=== PATIENT | female | born 1945 | race Caucasian/White ===

== ENCOUNTER 2017-02-16 18:18 | Inpatient (IN) | payer MEDICARE, BC ==
[~2017-02-16] VITALS: Ht 157.5 cm; Wt 61.7 kg
--- NOTE | 2017-02-16 18:20 | Emergency Room Report ---
History of Present Illness General Source: Patient, EMS Present Illness HPI Patient is a 71-year-old female who presented after having a syncopal episode. Patient had been noted to have hematemesis with some bright red blood. Patient reports having some epigastric pain. Patient recently taking Aleve for a pain. Patient recently been treated for conjunctivitis as well as for upper respiratory infection with azithromycin. Patient denied any prior history of GI bleed. Patient states that she had last had a syncopal episode approximately 40 years ago. She reports having some dizziness. The patient stated that she had not been any diarrhea. She denies any bloody stools. Allergies: Coded Allergies: PENICILLINS (Unverified Allergy, Unknown, 02/16/17) Patient History Past Medical History: see triage record Reviewed Nursing Documentation: PMH: Agreed, PSxH: Agreed Review of Systems All Other Systems: negative except mentioned in HPI Physical Exam Sp02 EP Interpretation: reviewed, normal General Appearance: normal inspection, well appearing, alert, GCS 15, mild distress Head: atraumatic ENT: normal ENT inspection, hearing grossly normal, normal voice Neck: normal inspection, full range of motion, supple, no bony tend Respiratory: normal inspection, lungs clear, normal breath sounds, no respiratory distress, no retraction, no wheezing Cardiovascular #1: regular rate, rhythm, no edema Gastrointestinal: normal inspection, normal bowel sounds, soft, no guarding, no hernia, tenderness Genitourinary: no CVA tenderness Musculoskeletal: normal inspection, back normal, normal range of motion Neurologic: normal inspection, alert, oriented x3, responsive, linen room attendant III-XII nml as tested, speech normal Psychiatric: normal inspection, judgement/insight normal, mood/affect normal Skin: normal inspection, normal color, no rash Medical Decision Making Diagnostic Impression: Primary Impression: Syncope Additional Impression: Upper gastrointestinal bleeding ER Course Patient presented for abdominal pain. Differential diagnoses included ischemic bowel, appendicitis, perforated viscus, abdominal aortic aneurysm, inferior myocardial infarction, viral gastroenteritis Because of complexity of patient's case laboratory testing and imaging studies were ordered. EKG interpreted by me showed normal sinus rhythm with a rate of [address] or T wave changes. 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 The patient was pain-free after treatment with IV acid blockers and IV fluids. Dr. Albarado was contacted for inpatient management due to need for inpatient monitoring and treatment. Dr. Dang was contacted by Dr. Albarado for GI consult Laboratory Tests Test 02/16/17 19:22 02/16/17 20:45 02/17/17 06:05 White Blood Count 11.4 K/UL (4.8-10.8) H Pending Red Blood Count 3.53 M/UL (4.20-5.40) L Pending Hemoglobin 11.0 G/DL (12.0-16.0) L Pending Hematocrit 32.7 % (37.0-47.0) L Pending Mean Corpuscular Volume 93 FL (80-99) Pending Mean Corpuscular Hemoglobin 31.2 PG (27.0-31.0) H Pending Mean Corpuscular Hemoglobin Concent 33.7 G/DL (32.0-36.0) Pending Red Cell Distribution Width 12.5 % (11.6-14.8) Pending Platelet Count 211 K/UL (150-450) Pending Mean Platelet Volume 5.7 FL (6.5-10.1) L Pending Neutrophils (%) (Auto) 76.4 % (45.0-75.0) H Pending Lymphocytes (%) (Auto) 17.0 % (20.0-45.0) L Pending Monocytes (%) (Auto) 5.3 % (1.0-10.0) Pending Eosinophils (%) (Auto) 0.9 % (0.0-3.0) Pending Basophils (%) (Auto) 0.5 % (0.0-2.0) Pending Prothrombin Time 11.0 SEC (9.30-11.50) Prothrombin Time INR 1.1 (0.9-1.1) PTT 22 SEC (23-33) L Sodium Level 140 mEQ/L (135-145) Pending Potassium Level 3.8 mEQ/L (3.4-4.9) Pending Chloride Level 102 mEQ/L (98-107) Pending Carbon Dioxide Level 25 mEQ/L (20-30) Pending Anion Gap 13 (5-15) Blood Urea Nitrogen 28 mg/dL (7-23) H Pending Creatinine 0.8 mg/dL (0.5-0.9) Pending Estimate Glomerular Filtration Rate > 60 mL/min (>60) Pending Glucose Level 143 mg/dL (74-106) H Pending Calcium Level 8.3 mg/dL (8.6-10.2) L Pending Total Bilirubin 0.2 mg/dL (0.0-1.2) Pending Aspartate Amino Transferase (AST) 16 U/L (5-40) Pending Alanine Aminotransferase (ALT) 11 U/L (3-33) Pending Alkaline Phosphatase 52 U/L (35-104) Pending Troponin I < 0.30 ng/mL (<=0.30) Total Protein 5.7 g/dL (6.6-8.7) L Pending Albumin 3.5 g/dL (3.5-5.2) Pending Globulin 2.2 g/dL Pending Albumin/Globulin Ratio 1.5 (1.0-2.7) Lipase 42 U/L (< 60) Urine Color Pale yellow Urine Appearance Clear Urine pH 6.5 (4.5-8.0) Urine Specific [place] 1.015 (1.005-1.035) Urine Protein Negative (NEGATIVE) Urine Glucose (UA) Negative (NEGATIVE) Urine Ketones 1+ (NEGATIVE) H Urine Occult Blood Negative (NEGATIVE) Urine Nitrite Negative (NEGATIVE) Urine Bilirubin Negative (NEGATIVE) Urine Urobilinogen Normal MG/DL (0.0-1.0) Urine Leukocyte Esterase Negative (NEGATIVE) Iron Level Pending Unsaturated Iron Binding Pending Pro-B-Type Natriuretic Peptide Pending Triglycerides Level Pending Cholesterol Level Pending LDL Cholesterol Pending HDL Cholesterol Pending Cholesterol/HDL Ratio Pending Amylase Level Pending Thyroid Stimulating Hormone (TSH) Pending EKG Diagnostic Results Rate: normal - 80 Rhythm: NSR Rhythm Strip Diag. Results EP Interpretation: yes Rhythm: NSR, no PVC's, no ectopy Chest X-Ray Diagnostic Results EP Interpretation: Yes Findings: no consolidation, no effusion, no pneumothorax, no acute cardiopulmonary disease Number of Views: 1 Status: improved Disposition: ADMITTED INPATIENT Condition: Ector Grion Feb 16, 2017 18:20
[2017-02-16] MEDS ORDERED: Pantoprazole Inj IV ONE (18:30)
[2017-02-16] MEDS ORDERED: Famotidine 20 MG/ 2ML VIAL IVP ONE (18:30)
[2017-02-16] MEDS ORDERED: TRAZODONE HCL150 MG ORAL (19:26)
[2017-02-16] MEDS ORDERED: Tubing IV Cassette IV ONE (19:26)
[2017-02-16 19:48] VITALS: BP 113/66
[2017-02-16 19:48] LABS: BASOPHILS % (AUTO) 0.5 % (0.0-2.0); EOSINOPHILS % (AUTO) 0.9 % (0.0-3.0); MEAN CORPUSCULAR HEMOGLOBIN 31.2 PG (27.0-31.0); MEAN CORPUSCULAR HGB CONC 33.7 G/DL (32.0-36.0); MEAN CORPUSCULAR VOLUME 93 FL (80-99); MEAN PLATELET VOLUME 5.7 FL (6.5-10.1); MONOCYTES % (AUTO) 5.3 % (1.0-10.0); NEUTROPHILS % (AUTO) 76.4 % (45.0-75.0); PLATELET COUNT 211 K/UL (150-450); RED BLOOD COUNT 3.53 M/UL (4.20-5.40); RED CELL DISTRIBUTION WIDTH 12.5 % (11.6-14.8); WHITE BLOOD COUNT 11.4 K/UL (4.8-10.8)
[2017-02-16 19:53] LABS: INR 1.1 (0.9-1.1)
[2017-02-16 19:56] LABS: ALANINE AMINOTRANSFERASE 11 U/L (3-33); ALBUMIN/GLOBULIN RATIO 1.5 (1.0-2.7); ANION GAP 13 (5-15); ASPARTATE AMINO TRANSFERASE 16 U/L (5-40); CALCIUM 8.3 mg/dL (8.6-10.2); CARBON DIOXIDE 25 mEQ/L (20-30); CHLORIDE 102 mEQ/L (98-107); CREATININE 0.8 mg/dL (0.5-0.9); GLOMERULAR FILTRATION RATE > 60 mL/min (>60); HEMOLYSIS 6; LIPASE 42 U/L (< 60); POTASSIUM 3.8 mEQ/L (3.4-4.9); SODIUM 140 mEQ/L (135-145); TOTAL PROTEIN 5.7 g/dL (6.6-8.7); TROPONIN I < 0.30 ng/mL (<=0.30)
[2017-02-16 21:01] VITALS: BP 109/65
[2017-02-16 21:22] LABS: KETONES,URINE 1+ (NEGATIVE); LEUKOCYTE ESTERASE ,URINE NEGATIVE (NEGATIVE); NITRITE,URINE NEGATIVE (NEGATIVE); PH,URINE 6.5 (4.5-8.0); PROTEIN,URINE NEGATIVE (NEGATIVE); UROBILINOGEN,URINE NORMAL MG/DL (0.0-1.0)
[2017-02-16 21:23] LABS: APPEARANCE,URINE CLEAR
[2017-02-16] MEDS ORDERED: D5NS 1,000 ML IV SCH (22:15)
[2017-02-17 07:19] LABS: BASOPHILS % (AUTO) 0.5 % (0.0-2.0); EOSINOPHILS % (AUTO) 0.9 % (0.0-3.0); LYMPHOCYTES % (AUTO) 22.7 % (20.0-45.0); MEAN CORPUSCULAR HEMOGLOBIN 30.2 PG (27.0-31.0); MEAN CORPUSCULAR HGB CONC 32.9 G/DL (32.0-36.0); MEAN CORPUSCULAR VOLUME 92 FL (80-99); MEAN PLATELET VOLUME 6.5 FL (6.5-10.1); MONOCYTES % (AUTO) 7.1 % (1.0-10.0); NEUTROPHILS % (AUTO) 68.8 % (45.0-75.0); PLATELET COUNT 219 K/UL (150-450); RED BLOOD COUNT 3.05 M/UL (4.20-5.40); RED CELL DISTRIBUTION WIDTH 12.8 % (11.6-14.8); WHITE BLOOD COUNT 8.2 K/UL (4.8-10.8)
[2017-02-17 07:41] LABS: ALANINE AMINOTRANSFERASE 10 U/L (3-33); ALBUMIN/GLOBULIN RATIO 1.5 (1.0-2.7); AMYLASE 39 U/L (10-110); ANION GAP 13 (5-15); ASPARTATE AMINO TRANSFERASE 13 U/L (5-40); CALCIUM 7.8 mg/dL (8.6-10.2); CARBON DIOXIDE 23 mEQ/L (20-30); CHLORIDE 105 mEQ/L (98-107); CHOLESTEROL 120 mg/dL (< 200); CHOLESTEROL/HDL RATIO 3.1 (3.3-4.4); CREATININE 0.6 mg/dL (0.5-0.9); GLOMERULAR FILTRATION RATE > 60 mL/min (>60); LDL CHOLESTEROL (CALC.) 57 mg/dL (60-99); POTASSIUM 4.1 mEQ/L (3.4-4.9); SODIUM 141 mEQ/L (135-145); TOTAL PROTEIN 5.1 g/dL (6.6-8.7)
[2017-02-17 07:42] LABS: THYROID STIMULATING HORMONE 0.827 uIU/mL (0.300-4.500)
[2017-02-17 07:46] LABS: HEMOLYSIS 7; IRON 234 ug/dL (37-145); TOTAL IRON BINDING CAPACITY 250 ug/dL (250-400)
[2017-02-17 10:20] VITALS: BP 109/66
[2017-02-17] MEDS ORDERED: D5NS 1000ml IV ONE (10:51)
[2017-02-17] MEDS ORDERED: D5NS 1,000 ML IV SCH ×2 (11:00→11:30)
[2017-02-17 12:00] VITALS: BP 113/64
--- NOTE | 2017-02-17 12:03 | General Progress Note ---
Assessment/Plan Assessment/Plan GI Consult Full note dictated PPI, NPO EGD in am Thank you Ariana Sandoval Subjective Allergies: Coded Allergies: PENICILLINS (Unverified Allergy, Unknown, 02/16/17) Objective Last 24 Hour Vital Signs Date Time Temp Pulse Resp B/P Pulse Ox O2 Delivery O2 Flow Rate FiO2 02/17/17 10:20 97.7 79 20 109/66 96 Room Air 02/17/17 08:43 75 02/17/17 04:00 77 02/17/17 00:00 84 02/16/17 21:26 97.7 82 15 109/65 99 Room Air 02/16/17 21:01 82 15 109/65 99 Room Air 02/16/17 19:48 79 23 113/66 98 Room Air 02/16/17 18:11 97.7 81 16 118/61 98 Room Air Intake and Output 02/16/17 02/17/17 19:00 07:00 Intake Total 1666 ml Balance 1666 ml Intake Oral 50 ml IV Total 1616 ml # Voids 3 Laboratory Tests 02/16/17 19:22: White Blood Count 11.4H, Red Blood Count 3.53L, Hemoglobin 11.0L, Hematocrit 32.7L, Mean Corpuscular Volume 93, Mean Corpuscular Hemoglobin 31.2H, Mean Corpuscular Hemoglobin Concent 33.7, Red Cell Distribution Width 12.5, Platelet Count 211, Mean Platelet Volume 5.7L, Neutrophils (%) (Auto) 76.4H, Lymphocytes (%) (Auto) 17.0L, Monocytes (%) (Auto) 5.3, Eosinophils (%) (Auto) 0.9, Basophils (%) (Auto) 0.5, Prothrombin Time 11.0, Prothromb Time International Ratio 1.1, Activated Partial Thromboplast Time 22L, Sodium Level 140, Potassium Level 3.8, Chloride Level 102, Carbon Dioxide Level 25, Anion Gap 13, Blood Urea Nitrogen 28H, Creatinine 0.8, Estimat Glomerular Filtration Rate > 60, Glucose Level 143H, Calcium Level 8.3L, Total Bilirubin 0.2, Aspartate Amino Transf (AST/SGOT) 16, Alanine Aminotransferase (ALT/SGPT) 11, Alkaline Phosphatase 52, Troponin I < 0.30, Total Protein 5.7L, Albumin 3.5, Globulin 2.2 , Albumin/Globulin Ratio 1.5, Lipase 42 02/16/17 20:45: Urine Color Pale yellow, Urine Appearance Clear, Urine pH 6.5, Urine Specific [place] 1.015, Urine Protein Negative, Urine Glucose (UA) Negative, Urine Ketones 1+H, Urine Occult Blood Negative, Urine Nitrite Negative, Urine Bilirubin Negative, Urine Urobilinogen Normal, Urine Leukocyte Esterase Negative 02/17/17 06:05: White Blood Count 8.2, Red Blood Count 3.05L, Hemoglobin 9.2L, Hematocrit 28.0L , Mean Corpuscular Volume 92, Mean Corpuscular Hemoglobin 30.2, Mean Corpuscular Hemoglobin Concent 32.9, Red Cell Distribution Width 12.8, Platelet Count 219, Mean Platelet Volume 6.5, Neutrophils (%) (Auto) 68.8, Lymphocytes (% ) (Auto) 22.7, Monocytes (%) (Auto) 7.1, Eosinophils (%) (Auto) 0.9, Basophils ( %) (Auto) 0.5, Sodium Level 141, Potassium Level 4.1, Chloride Level 105, Carbon Dioxide Level 23, Anion Gap 13, Blood Urea Nitrogen 35H, Creatinine 0.6, Estimat Glomerular Filtration Rate > 60, Glucose Level 106, Calcium Level 7.8L, Total Bilirubin < 0.2, Aspartate Amino Transf (AST/SGOT) 13, Alanine Aminotransferase (ALT/SGPT) 10, Alkaline Phosphatase 42, Total Protein 5.1L, Albumin 3.1L, Globulin 2.0, Albumin/Globulin Ratio 1.5, Iron Level 234H, Total Iron Binding Capacity 250, Percent Iron Saturation 94H, Unsaturated Iron Binding < 16L, Pro-B-Type Natriuretic Peptide 34, Triglycerides Level 121, Cholesterol Level 120, LDL Cholesterol 57L, HDL Cholesterol 39, Cholesterol/HDL Ratio 3.1L, Amylase Level 39, Thyroid Stimulating Hormone (TSH) 0.827 Height (Feet): 5 Height (Inches): 2.00 Weight (Pounds): 135 JIMMIE SANDOVAL Feb 17, 2017 12:03
[2017-02-17] MEDS: Pantoprazole Inj IVP SCH ×2 (12:28→21:29)
[2017-02-17] MEDS: D5 1/2NS 1,000 ML IV SCH ×2 (12:28→21:29)
[2017-02-17 16:13] VITALS: BP 129/77
--- NOTE | 2017-02-17 16:34 | Cardiology Progress Note ---
Assessment/Plan Assessment/Plan The patient is seen and examined, full consult note will be dictated. Objective Last 24 Hour Vital Signs Date Time Temp Pulse Resp B/P Pulse Ox O2 Delivery O2 Flow Rate FiO2 02/17/17 16:27 87 02/17/17 16:13 98.2 78 19 129/77 98 Room Air 02/17/17 12:00 87 02/17/17 12:00 98.1 78 20 113/64 98 Room Air 02/17/17 10:20 97.7 79 20 109/66 96 Room Air 02/17/17 08:43 75 02/17/17 04:00 77 02/17/17 00:00 84 02/16/17 21:26 97.7 82 15 109/65 99 Room Air 02/16/17 21:01 82 15 109/65 99 Room Air 02/16/17 19:48 79 23 113/66 98 Room Air 02/16/17 18:11 97.7 81 16 118/61 98 Room Air Intake and Output 02/16/17 02/17/17 19:00 07:00 Intake Total 1741 ml Balance 1741 ml Intake Oral 50 ml IV Total 1691 ml # Voids 3 Laboratory Tests Test 02/16/17 19:22 02/16/17 20:45 02/17/17 06:05 White Blood Count 11.4 K/UL (4.8-10.8) H 8.2 K/UL (4.8-10.8) Red Blood Count 3.53 M/UL (4.20-5.40) L 3.05 M/UL (4.20-5.40) L Hemoglobin 11.0 G/DL (12.0-16.0) L 9.2 G/DL (12.0-16.0) L Hematocrit 32.7 % (37.0-47.0) L 28.0 % (37.0-47.0) L Mean Corpuscular Volume 93 FL (80-99) 92 FL (80-99) Mean Corpuscular Hemoglobin 31.2 PG (27.0-31.0) H 30.2 PG (27.0-31.0) Mean Corpuscular Hemoglobin Concent 33.7 G/DL (32.0-36.0) 32.9 G/DL (32.0-36.0) Red Cell Distribution Width 12.5 % (11.6-14.8) 12.8 % (11.6-14.8) Platelet Count 211 K/UL (150-450) 219 K/UL (150-450) Mean Platelet Volume 5.7 FL (6.5-10.1) L 6.5 FL (6.5-10.1) Neutrophils (%) (Auto) 76.4 % (45.0-75.0) H 68.8 % (45.0-75.0) Lymphocytes (%) (Auto) 17.0 % (20.0-45.0) L 22.7 % (20.0-45.0) Monocytes (%) (Auto) 5.3 % (1.0-10.0) 7.1 % (1.0-10.0) Eosinophils (%) (Auto) 0.9 % (0.0-3.0) 0.9 % (0.0-3.0) Basophils (%) (Auto) 0.5 % (0.0-2.0) 0.5 % (0.0-2.0) Prothrombin Time 11.0 SEC (9.30-11.50) Prothromb Time International Ratio 1.1 (0.9-1.1) Activated Partial Thromboplast Time 22 SEC (23-33) L Sodium Level 140 mEQ/L (135-145) 141 mEQ/L (135-145) Potassium Level 3.8 mEQ/L (3.4-4.9) 4.1 mEQ/L (3.4-4.9) Chloride Level 102 mEQ/L (98-107) 105 mEQ/L (98-107) Carbon Dioxide Level 25 mEQ/L (20-30) 23 mEQ/L (20-30) Anion Gap 13 (5-15) 13 (5-15) Blood Urea Nitrogen 28 mg/dL (7-23) H 35 mg/dL (7-23) H Creatinine 0.8 mg/dL (0.5-0.9) 0.6 mg/dL (0.5-0.9) Estimat Glomerular Filtration Rate > 60 mL/min (>60) > 60 mL/min (>60) Glucose Level 143 mg/dL (74-106) H 106 mg/dL (74-106) Calcium Level 8.3 mg/dL (8.6-10.2) L 7.8 mg/dL (8.6-10.2) L Total Bilirubin 0.2 mg/dL (0.0-1.2) < 0.2 mg/dL (0.0-1.2) Aspartate Amino Transf (AST/SGOT) 16 U/L (5-40) 13 U/L (5-40) Alanine Aminotransferase (ALT/SGPT) 11 U/L (3-33) 10 U/L (3-33) Alkaline Phosphatase 52 U/L (35-104) 42 U/L (35-104) Troponin I < 0.30 ng/mL (<=0.30) Total Protein 5.7 g/dL (6.6-8.7) L 5.1 g/dL (6.6-8.7) L Albumin 3.5 g/dL (3.5-5.2) 3.1 g/dL (3.5-5.2) L Globulin 2.2 g/dL 2.0 g/dL Albumin/Globulin Ratio 1.5 (1.0-2.7) 1.5 (1.0-2.7) Lipase 42 U/L (< 60) Urine Color Pale yellow Urine Appearance Clear Urine pH 6.5 (4.5-8.0) Urine Specific [place] 1.015 (1.005-1.035) Urine Protein Negative (NEGATIVE) Urine Glucose (UA) Negative (NEGATIVE) Urine Ketones 1+ (NEGATIVE) H Urine Occult Blood Negative (NEGATIVE) Urine Nitrite Negative (NEGATIVE) Urine Bilirubin Negative (NEGATIVE) Urine Urobilinogen Normal MG/DL (0.0-1.0) Urine Leukocyte Esterase Negative (NEGATIVE) Iron Level 234 ug/dL (37-145) H Total Iron Binding Capacity 250 ug/dL (250-400) Percent Iron Saturation 94 % (15-50) H Unsaturated Iron Binding < 16 ug/dL (112-346) L Pro-B-Type Natriuretic Peptide 34 pg/mL (0-125) Triglycerides Level 121 mg/dL (< 150) Cholesterol Level 120 mg/dL (< 200) LDL Cholesterol 57 mg/dL (60-99) L HDL Cholesterol 39 mg/dL (> 60) Cholesterol/HDL Ratio 3.1 (3.3-4.4) L Amylase Level 39 U/L (10-110) Thyroid Stimulating Hormone (TSH) 0.827 uIU/mL (0.300-4.500) SERGIO LEACH Feb 17, 2017 16:34
[2017-02-17 18:15] LABS: BASOPHILS % (AUTO) 0.6 % (0.0-2.0); LYMPHOCYTES % (AUTO) 32.5 % (20.0-45.0); MEAN CORPUSCULAR HEMOGLOBIN 30.4 PG (27.0-31.0); MEAN CORPUSCULAR HGB CONC 33.2 G/DL (32.0-36.0); MEAN CORPUSCULAR VOLUME 92 FL (80-99); MEAN PLATELET VOLUME 5.9 FL (6.5-10.1); MONOCYTES % (AUTO) 6.1 % (1.0-10.0); NEUTROPHILS % (AUTO) 59.8 % (45.0-75.0); PLATELET COUNT 228 K/UL (150-450); RED BLOOD COUNT 3.23 M/UL (4.20-5.40); RED CELL DISTRIBUTION WIDTH 12.6 % (11.6-14.8); WHITE BLOOD COUNT 8.9 K/UL (4.8-10.8)
[2017-02-17] MEDS ORDERED: LORazepam Inj 2mg/ml 1ml IV PRN (19:15)
[2017-02-17 20:52] VITALS: BP 107/67
--- NOTE | 2017-02-17 21:58 | History and Physical Report ---
DATE OF ADMISSION: 02/16/2017 SOURCE OF INFORMATION: The patient and EMR. HISTORY OF PRESENT ILLNESS: The patient is a 71-year-old white female. She has been brought to the emergency room after a weakness and loss of consciousness on her way. No seizure activity. No episodes of loss of bowel control or bladder control has been noted. REVIEW OF SYSTEMS: Positive for one episode of suspicious bloody vomitus. Negative for diarrhea or abdominal pain. Negative for headache or blurry visions. Negative for nausea. Negative for severe pain in the extremities. COURSE OF EMERGENCY ROOM ASSESSMENT: The patient was admitted in stable vital signs. Reportedly imaging still in progress. PAST SURGICAL HISTORY: Knees right-sided shoulder and C-sections. PAST MEDICAL HISTORY: Unremarkable. HOME MEDICATIONS: Trazodone. ALLERGIES: To penicillin. CODE STATUS: Full. PHYSICAL EXAMINATION: VITAL SIGNS: Blood pressure 110/80, temperature 98.2, pulse oximetry 98% on room air, and respiratory rate 18. HEAD AND NECK: Atraumatic and normocephalic. CHEST: Clear to auscultation. HEART: S1 and S2. Regular rate and rhythm. ABDOMEN: Soft. No organomegaly. MUSCULOSKELETAL: No gross focal motor deficit. NEUROLOGIC: The patient is awake, alert, and oriented x3. LABORATORY DATA: Lab results dated 02/16/2017 - 15 WBC 11.4, hemoglobin 11, and platelets 211,000. Sodium 140, potassium 3.8, BUN 28, and creatinine 0.8. Serum iron 234 and iron saturation 94. Liver function test is normal. Troponin is normal. Urine analysis is normal. ASSESSMENT AND PLAN: 1. Acute encephalopathy. 2. Dehydration. 3. Anemia - acute. 4. Gastrointestinal bleed. 5. Gastroesophageal reflux disease. 6. Gastrointestinal and deep vein thrombosis prophylaxes. PLAN OF CARE: GI, Dr. Dang; Neurology, Dr. Rene Rodriguez; and Cardiology, Dr. Drake have already been noted and consulted. We will monitor H and H. Keep the patient n.p.o. with IV famotidine. Continue with the IV hydration. Rula Albarado M.D. DR: JANETTE JOB#: [id number] CC: ERON
--- NOTE | 2017-02-17 23:48 | Consultation ---
DATE OF CONSULTATION: 02/17/2017 NEUROLOGICAL CONSULTATION CONSULTING PHYSICIAN: Rene Rodriguez M.D. REQUESTING PHYSICIAN: Rula Albarado M.D. History Of Present Illness: The patient is a 71-year-old female, seen in neurological consultation to evaluate the transient loss of consciousness. The patient informed me that the last few weeks, she was having slight upper respiratory infection and at times coughing. This was fluctuating and exacerbated last week after a visit to [place]. She was seen by family physician, was started on Zithromax. Last few days, she was extremely dizzy with social events and yesterday around 4:30 p.m. after going to the theater, she felt somewhat weak and shaky, which was suspicious for having hypoglycemia event. She was able to eat some sandwich, drove home, still feeling weak, and she was at the door, she started to feel like she is fainting. She was able to shout at her to help and able to open the door. At that point, she lost consciousness and fell down. found her on the ground without any associated symptoms such as involuntary movement. The patient also denies having tongue biting. Denies urine incontinence. Paramedics were called to the scene. They tried to sit her up. At that point, she has developed nausea and vomiting. She noted that the vomit was light color, she suspected that she might have some blood in her vomit. Following this, later she developed tension headaches. The patient was brought to emergency room where her EKG revealed normal sinus rhythm. No PVCs. There was a laboratory work obtained. CBC study with WBC 11.4 and hemoglobin 11.0. Coagulation panel was unremarkable. Urinalysis, 1+ ketones Chemistry panel with blood sugar 143, calcium 8.3, and BUN of 28. Repeat study revealed albumin down to 3.1, but normal lipid panel, normal TSH, and normal lipase. The patient is placed on NPO. Gastrointestinal workup scheduled. PAST MEDICAL HISTORY: The patient has a history of syncope episode approximately four years ago when she had a food poisoning. No history of seizure or paroxysmal loss of consciousness. She has recently developed insomnia, increasing anxiety, and was placed by her doctor on trazodone 150 mg. She has intermittent episodes of mild tension headache, usually in the morning following restless sleep. Denies any other major medical problems. 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 The patient has a healthy lifestyle. She goes frequently to gym and maintains proper diet. No alcohol. No drug abuse. Nonsmoker. very active social activities. FAMILY HISTORY: Noncontributory except that her daughter, who suffered from AV malformation and also developed seizure activities. REVIEW OF SYSTEM: Currently, the patient is feeling well. She denies any complaints. No chest pain. No palpitations. No respiratory problems. Denies abdominal pain or discomfort. No urine or bowel incontinence. She is only concerned with the current symptomatology especially possible gastrointestinal bleed. PHYSICAL EXAMINATION: GENERAL: This is a well-developed, well-nourished, pleasant lady, not in acute distress. VITAL SIGNS: Stable. MUSCULOSKELETAL EXAMINATION: Unremarkable. No deformities. Peripheral pulses 1+ symmetric. MENTAL STATUS: The patient is alert and oriented x3. Her speech is fluent. Language intact. There is no aphasia. No apraxia. Cognitive function normal. CRANIAL NERVE II: Pupils both responding to light and accommodation. Extraocular movement intact. No nystagmus. CRANIAL NERVE V: Normal corneal responses. CRANIAL NERVE VII: No facial asymmetry. CRANIAL NERVE VIII: Normal hearing. CRANIAL NERVE IX THROUGH XII: In normal limits. Deep tendon reflexes 1+ symmetric with downgoing toes on both sides. SENSORY EXAM: Normal to pinprick and light touch. Gait is stable. IMPRESSION: 1. History of syncopal episode probably vasovagal, rule out dehydration, rule out gastrointestinal bleed. 2. Anxiety. 3. Sleep disorder. 4. Tension headache. DISCUSSION: The patient has no evidence of focal lateralizing neurological deficit, description of transient loss of consciousness follows pattern of syncope was very unlikely to be seizure activity. The patient to be observed for any paroxysmal events. Meanwhile, she will complete her workup including cardiac monitoring and gastrointestinal studies. Thank you for allowing me to see this interesting patient in neurological consultation. Rene Rodriguez M.D. DR: BEN JOB#: [id number] CC:
[2017-02-18] VITALS (12 sets, daily range): BP systolic 94–127; BP diastolic 56–70
--- NOTE | 2017-02-18 00:38 | Consultation ---
DATE OF CONSULTATION: 02/17/2017 CARDIOLOGY CONSULTATION CONSULTING PHYSICIAN: Víctor Drake M.D. REFERRING PHYSICIAN: Rula Albarado M.D. REASON FOR CONSULTATION: Management of syncope. HISTORY OF PRESENT ILLNESS: The patient is a very pleasant 71-year-old female, with no prior medical history, presents to the hospital after sustaining an episode of syncope. The patient has been noticing hematemesis with bright red blood contained vomitus as well as epigastric pain following taking Aleve for cervical spine disease. The patient apparently has been taking nonsteroidal anti-inflammatory drugs more frequently the past week or two. She states that she had an episode of syncope for around 40 years ago as well. At that time, it was reported to be secondary to dehydration. At the time of evaluation in the emergency department, her initial blood pressure was 118/61 and heart rate was 81. She was admitted to [facility] for evaluation and management of gastrointestinal bleed and syncope. The patient denies any history of coronary artery disease, cardiac arrhythmias, or congestive heart failure. She is physically active and claims that she had tolerance physical activity such as hiking and biking with no limitations. PAST MEDICAL HISTORY: 1. Cervical spine disease. 2. Conjunctivitis. PAST SURGICAL HISTORY: None. MEDICATIONS: Includes trazodone 150 mg at bedtime, Motrin one tab as needed, as well as Excedrin one tablet as needed for headaches. ALLERGIES: Penicillin. REVIEW OF SYSTEMS: HEENT: Denies any blurred vision or diplopia, but currently complains of headache mostly in the middle of the head. Constitutional: Denies any fever, chills, night sweats, or weight loss. Cardiovascular: Denies any chest pain, shortness breath, PND, orthopnea, or leg swelling. She had an episode of syncope following hematemesis. Pulmonary: Denies any cough, hemoptysis, or wheezing. Gastrointestinal: She has epigastric pain as well as vomiting bright red blood contained contents. No hematochezia. No melena or constipation. Genitourinary: Denies any hematuria, dysuria, or incontinence. Neurology: Denies any motor dysfunction, sensory deficit, or altered speech. PHYSICAL EXAMINATION: VITAL SIGNS: Blood pressure is 118/61, pulse of 81, respirations 16, temperature 97.7 degrees Fahrenheit, and O2 saturation 98% on room air. GENERAL: The patient is a very pleasant 71-year-old female, in no apparent respiratory distress. Alert and oriented x4. HEENT: Atraumatic and normocephalic. Anicteric. Pupils are equal, round, and reactive to light and accommodation. Extraocular motion intact. NECK: JVP is less than 5 cm. No carotid bruits. Carotid upstrokes 2+ bilaterally. CVS: Normal S1 and S2. Regular rate and rhythm. No murmurs, gallops, or rubs. PMI is at fourth intercostal space at the midclavicular line. LUNGS: Clear to auscultation bilaterally. ABDOMEN: Soft, nontender, and nondistended. No hepatosplenomegaly. Positive bowel sounds. EXTREMITIES: No evidence of edema, clubbing, or cyanosis. LABORATORY AND DIAGNOSTIC DATA: A 12-lead electrocardiogram shows sinus rhythm at a rate of 85 with left axis deviation, left atrial enlargement, and left anterior fascicular block. Her laboratory finding shows WBC of 11.4, hemoglobin 11.0 which dropped to 9.2, hematocrit of 32.7 dropped to 28, and platelet count is 211,000. Sodium 140, potassium is 3.8, chloride 102, bicarbonate 25, BUN of 28, creatinine 0.8, glucose is 143, and calcium is 8.3. Troponin I less than 0.3. INR is 1.1. ASSESSMENT AND PLAN: The patient is a very pleasant 71-year-old lady, who is seen in Cardiology consultation at the request of Dr. Albarado. 1. Syncopal event. This is due to volume loss or hypovolemia, as the patient had a bout of hematemesis resulting in blood loss. The patient requires to be continued on intravenous infusion normal saline. One has to consider blood transfusion if there is further drop of hemoglobin and hematocrit. The patient will require orthostatic care for accurate assessment of management of volume loss. A 2D echocardiography in this patient has shown normal left ventricular systolic function with left ventricular ejection fraction estimated at 55% to 60%. 2. History of upper gastrointestinal bleed. The patient is scheduled for upper endoscopy in the morning. 3. History of headaches. The patient is demanding treatment therapy for this condition. We will discuss with the primary care physician regarding the choice of medication for this condition. I would like to thank, Dr. Albarado, for allowing me to participate in the care of this patient. Víctor Drake M.D. DR: RUTH JOB#: [id number] CC:
[2017-02-18 05:13] LABS: BASOPHILS % (AUTO) 0.8 % (0.0-2.0); EOSINOPHILS % (AUTO) 2.9 % (0.0-3.0); LYMPHOCYTES % (AUTO) 31.2 % (20.0-45.0); MEAN CORPUSCULAR HGB CONC 32.5 G/DL (32.0-36.0); MEAN CORPUSCULAR VOLUME 92 FL (80-99); MEAN PLATELET VOLUME 5.8 FL (6.5-10.1); MONOCYTES % (AUTO) 7.1 % (1.0-10.0); NEUTROPHILS % (AUTO) 58.1 % (45.0-75.0); PLATELET COUNT 223 K/UL (150-450); RED BLOOD COUNT 3.17 M/UL (4.20-5.40); RED CELL DISTRIBUTION WIDTH 12.8 % (11.6-14.8); WHITE BLOOD COUNT 6.7 K/UL (4.8-10.8)
[2017-02-18 05:22] LABS: ALANINE AMINOTRANSFERASE 11 U/L (3-33); ALBUMIN/GLOBULIN RATIO 1.4 (1.0-2.7); ANION GAP 12 (5-15); ASPARTATE AMINO TRANSFERASE 15 U/L (5-40); CARBON DIOXIDE 22 mEQ/L (20-30); CHLORIDE 107 mEQ/L (98-107); CREATININE 0.6 mg/dL (0.5-0.9); GLOMERULAR FILTRATION RATE > 60 mL/min (>60); HEMOLYSIS 2; POTASSIUM 3.8 mEQ/L (3.4-4.9); SODIUM 141 mEQ/L (135-145); TOTAL PROTEIN 5.2 g/dL (6.6-8.7)
[2017-02-18] MEDS: D5 1/2NS 1,000 ML IV SCH (08:24)
[2017-02-18] MEDS: Pantoprazole Inj IVP SCH ×2 (08:24→22:17)
[2017-02-18] MEDS ORDERED: D5NS 1000ml IV ONE (09:33)
[2017-02-18] MEDS ORDERED: NS 550ML IV ONE ×2 (09:33→11:40)
[2017-02-18] MEDS ORDERED: D5 1/2NS 1000ml IV ONE (09:33)
--- NOTE | 2017-02-18 09:48 | Consultation ---
DATE OF CONSULTATION: 02/17/2017 CHIEF COMPLAINT: I was asked to see this patient by Dr. Rula Albarado for Dr. Dang for evaluation of . HISTORY OF PRESENT ILLNESS: The patient is a 71-year-old white woman who came to the hospital with a syncopal episode. She has been to [place] and [place] behind and it appears passing out of it. Subsequently, when the paramedics arrived, she had vomiting and the vomiting had red to maroon color blood in it. She has not had any melena and her stools are apparently green. It appears she has not had an endoscopy in the past. She has not had a history of ulcers. She has had several colonoscopies, last one being about three years ago, they were all normal. The patient complained of long-standing history of gastroesophageal reflux, but she does not take any medications out of fear of side effects. PAST MEDICAL HISTORY: Otherwise unremarkable. FAMILY HISTORY: . SOCIAL HISTORY: The patient is and lives . She does not smoke or drink. MEDICATIONS: at bedtime. ALLERGIES: Penicillin. REVIEW OF SYSTEMS: Otherwise negative. PHYSICAL EXAMINATION: GENERAL: Pleasant white woman, seen in the emergency room. HEENT: Normocephalic and atraumatic. Sclerae are anicteric. Oropharynx is clear. NECK: Supple. CHEST: Clear to auscultation. CARDIOVASCULAR: Revealed a regular rate. ABDOMEN: Soft with good bowel sounds. There is no tenderness. EXTREMITIES: Revealed no edema. NEUROLOGICAL: Nonfocal. LABORATORY DATA: Noted. ASSESSMENT: This patient presents with subsequent nausea, vomiting, and she has had severe drop in hematocrit and likely bleeding has led to her syncopal process. The patient and IV fluids to be given. Her hematocrit may fall further . She is only to receive if necessary she needs to be transfused. The patient will undergo endoscopy tomorrow once she is volume repleted. Indications, risks, alternatives, and possible complications of endoscopy were explained to the patient and an informed consent was obtained. RECOMMENDATIONS: 1. . 2. IV fluids. 3. Serial CBCs. 4. Transfuse hematocrit greater than 25. 5. Endoscopy once stabilized. Thank you for asking me to participate in care of this patient. Dominik Sandoval M.D. DR: GEORGINA JOB#: [id number] CC:
--- NOTE | 2017-02-18 10:56 | Diagnostic Imaging Report ---
Indication: Abdominal pain Technique: Murdock-scale and duplex images of the upper abdomen were obtained Comparison: None Findings: . Gallbladder demonstrates gallstones. No gallbladder wall thickening or pericholecystic fluid.. Sonographic Hunt's sign is negative. Common bile duct measures 4 mm in diameter. No intrahepatic biliary ductal dilatation. Liver demonstrates normal echogenicity, no focal abnormality. Portal vein and hepatic veins are patent.. Pancreas is unremarkable. Spleen is unremarkable. Left kidney measures 10.7 cm in length. Right kidney measures 10.8 cm length. Both kidneys demonstrate normal echogenicity. There is no hydronephrosis. 3 x 6 mm hyperechoic focus seen in the upper pole of the right kidney. Non-aneurysmal abdominal aorta. Impression: Cholelithiasis. Negative for dilated ducts Right upper pole echogenic focus in the right kidney. Possibilities include parenchymal calcification, arterial calcification, angiomyolipoma. Consider CT for better characterization as clinically indicated
[2017-02-18] MEDS ORDERED: fentaNYL 100 mcg/2 mL IV ONE (11:00)
[2017-02-18] MEDS ORDERED: Propofol 10mg/ml 20ml IV ONE (11:00)
[2017-02-18] MEDS ORDERED: Midazolam 2mg/2ml Inj ONE (11:00)
--- NOTE | 2017-02-18 11:24 | Pre-Procedure Note/Attestation ---
Pre-Procedure Note/Attestation Complete Prior to Procedure Planned Procedure: not applicable Procedure Narrative: egd Indications for Procedure Pre-Operative Diagnosis: gib Attestation I attest that I discussed the nature of the procedure; its benefits; risks and complications; and alternatives (and the risks and benefits of such alternatives ), prior to the procedure, with the patient (or the patient's legal charter representative). I attest that, if there was a reasonable possibility of needing a blood transfusion, the patient (or the patient's legal charter representative) was given the [facility] standardized written summary, pursuant to the Yossi Meredith Blood Safety Act ([place] Health and Safety Code # 1645, as amended). I attest that I re-evaluated the patient just prior to the surgery and that there has been no change in the patient's H&P, except as documented below: RUSSEL RENDON Feb 18, 2017 11:24
--- NOTE | 2017-02-18 11:29 | General Progress Note ---
Assessment/Plan Status: stable Assessment/Plan 1. Acute encephalopathy. 2. Dehydration. 3. Anemia - acute. 4. Gastrointestinal bleed. 5. Gastroesophageal reflux disease. 6. Gastrointestinal and deep vein thrombosis prophylaxes. Neuro, GI notes are reviewed pending Endoscopy Subjective ROS Limited/Unobtainable: No Constitutional: Reports: no symptoms HEENT: Reports: no symptoms Cardiovascular: Reports: no symptoms Respiratory: Reports: no symptoms Allergies: Coded Allergies: PENICILLINS (Unverified Allergy, Unknown, 02/16/17) Objective Last 24 Hour Vital Signs Date Time Temp Pulse Resp B/P Pulse Ox O2 Delivery O2 Flow Rate FiO2 02/18/17 08:00 68 02/18/17 08:00 97.3 84 21 127/67 98 Room Air 02/18/17 04:00 97.7 72 20 106/62 99 Room Air 02/18/17 04:00 72 82 99 02/18/17 03:40 74 02/18/17 00:00 97.7 75 20 110/61 95 Room Air 02/17/17 23:44 71 02/17/17 20:52 98.0 71 20 107/67 96 Room Air 02/17/17 19:16 73 02/17/17 18:03 98.2 02/17/17 16:27 87 02/17/17 16:13 98.2 78 19 129/77 98 Room Air 02/17/17 12:00 87 02/17/17 12:00 98.1 78 20 113/64 98 Room Air Intake and Output 02/17/17 02/18/17 19:00 07:00 Intake Total 1530 ml 1200 ml Balance 1530 ml 1200 ml Intake Oral 30 ml IV Total 1500 ml 1200 ml # Voids 1 2 Laboratory Tests 02/17/17 17:25: White Blood Count 8.9, Red Blood Count 3.23L, Hemoglobin 9.8L, Hematocrit 29.6L , Mean Corpuscular Volume 92, Mean Corpuscular Hemoglobin 30.4, Mean Corpuscular Hemoglobin Concent 33.2, Red Cell Distribution Width 12.6, Platelet Count 228, Mean Platelet Volume 5.9L, Neutrophils (%) (Auto) 59.8, Lymphocytes ( %) (Auto) 32.5, Monocytes (%) (Auto) 6.1, Eosinophils (%) (Auto) 1.0, Basophils (%) (Auto) 0.6 02/18/17 03:20: White Blood Count 6.7, Red Blood Count 3.17L, Hemoglobin 9.5L, Hematocrit 29.3L , Mean Corpuscular Volume 92, Mean Corpuscular Hemoglobin 30.0, Mean Corpuscular Hemoglobin Concent 32.5, Red Cell Distribution Width 12.8, Platelet Count 223, Mean Platelet Volume 5.8L, Neutrophils (%) (Auto) 58.1, Lymphocytes ( %) (Auto) 31.2, Monocytes (%) (Auto) 7.1, Eosinophils (%) (Auto) 2.9, Basophils (%) (Auto) 0.8, Sodium Level 141, Potassium Level 3.8, Chloride Level 107, Carbon Dioxide Level 22, Anion Gap 12, Blood Urea Nitrogen 11, Creatinine 0.6, Estimat Glomerular Filtration Rate > 60, Glucose Level 116H, Calcium Level 8.0L , Total Bilirubin 0.3, Aspartate Amino Transf (AST/SGOT) 15, Alanine Aminotransferase (ALT/SGPT) 11, Alkaline Phosphatase 42, Total Protein 5.2L, Albumin 3.1L, Globulin 2.1, Albumin/Globulin Ratio 1.4 Height (Feet): 5 Height (Inches): 2.00 Weight (Pounds): 136 General Appearance: no apparent distress EENT: PERRL/EOMI Neck: supple Cardiovascular: normal rate Respiratory/Chest: lungs clear Abdomen: soft Extremities: non-tender Neurologic: recreational resort manager II-XII grossly normal Rula Albarado MD Feb 18, 2017 11:29
--- NOTE | 2017-02-18 11:54 | Anethesia Preoperative Eval ---
Anesthesia Pre-op PMH/ROS General Date of Evaluation: Feb 18, 2017 Time of Evaluation: 11:44 Anesthesiologist: Mildred ASA Score: ASA 3 Mallampati Score Class I : Soft palate, uvula, fauces, pillars visible Class II: Soft palate, uvula, fauces visible Class III: Soft palate, base of uvula visible Class IV: Only hard plate visible Mallampati Classification: Class II Surgeon: Laurence Diagnosis: GI bleed Surgical Procedure: EGD Anesthesia History: none Family History: no anesthesia problems Allergies: Coded Allergies: PENICILLINS (Unverified Allergy, Unknown, 02/16/17) Past Medical History Cardiovascular: Denies: CAD, HTN, NV, arrhythmia, other, valve dz Pulmonary: Denies: COPD, OSIEL, asthma, other Gastrointestinal/Genitourinary: Reports: GERD, Denies: CRI, ESRD, other Neurologic/Psychiatric: Denies: CVA, TIA, dementia, depression/anxiety, other Endocrine: Denies: DM, hypothyroidism, other, steroids HEENT: Denies: COMANCHE (L), COMANCHE (R), cataract (L), cataract (R), glaucoma, other Hematology/Immune: Reports: anemia, Denies: DVT, bleeding disorder, other Musculoskeletal/Integumentary: Reports: DJD, Denies: DDD, OA, RA, edema, other PMH Narrative: as above PSxH Narrative: , cosmetic Anesthesia Pre-op Phys. Exam Physician Exam Last Vital Signs Date Time Temp Pulse Resp B/P Pulse Ox O2 Delivery O2 Flow Rate FiO2 02/18/17 08:00 68 02/18/17 08:00 97.3 21 127/67 98 Room Air Constitutional: NAD Neurologic: CN 2-12 intact Cardiovascular: RRR, no M/R/G Respiratory: CTA Gastrointestinal: S/NT/ND Airway Exam Mallampati Score: Class II MO: limited Neck: stiff ROM: limited Teeth: intact Dentures: no lower, no upper Anesthesia Pre-op A/P Labs Hematology Test 02/17/17 17:25 02/18/17 03:20 White Blood Count 8.9 K/UL (4.8-10.8) 6.7 K/UL (4.8-10.8) Red Blood Count 3.23 M/UL (4.20-5.40) L 3.17 M/UL (4.20-5.40) L Hemoglobin 9.8 G/DL (12.0-16.0) L 9.5 G/DL (12.0-16.0) L Hematocrit 29.6 % (37.0-47.0) L 29.3 % (37.0-47.0) L Mean Corpuscular Volume 92 FL (80-99) 92 FL (80-99) Mean Corpuscular Hemoglobin 30.4 PG (27.0-31.0) 30.0 PG (27.0-31.0) Mean Corpuscular Hemoglobin Concent 33.2 G/DL (32.0-36.0) 32.5 G/DL (32.0-36.0) Red Cell Distribution Width 12.6 % (11.6-14.8) 12.8 % (11.6-14.8) Platelet Count 228 K/UL (150-450) 223 K/UL (150-450) Mean Platelet Volume 5.9 FL (6.5-10.1) L 5.8 FL (6.5-10.1) L Neutrophils (%) (Auto) 59.8 % (45.0-75.0) 58.1 % (45.0-75.0) Lymphocytes (%) (Auto) 32.5 % (20.0-45.0) 31.2 % (20.0-45.0) Monocytes (%) (Auto) 6.1 % (1.0-10.0) 7.1 % (1.0-10.0) Eosinophils (%) (Auto) 1.0 % (0.0-3.0) 2.9 % (0.0-3.0) Basophils (%) (Auto) 0.6 % (0.0-2.0) 0.8 % (0.0-2.0) Chemistry Test 02/18/17 03:20 Sodium Level 141 mEQ/L (135-145) Potassium Level 3.8 mEQ/L (3.4-4.9) Chloride Level 107 mEQ/L (98-107) Carbon Dioxide Level 22 mEQ/L (20-30) Anion Gap 12 (5-15) Blood Urea Nitrogen 11 mg/dL (7-23) Creatinine 0.6 mg/dL (0.5-0.9) Estimat Glomerular Filtration Rate > 60 mL/min (>60) Glucose Level 116 mg/dL (74-106) H Calcium Level 8.0 mg/dL (8.6-10.2) L Total Bilirubin 0.3 mg/dL (0.0-1.2) Aspartate Amino Transf (AST/SGOT) 15 U/L (5-40) Alanine Aminotransferase (ALT/SGPT) 11 U/L (3-33) Alkaline Phosphatase 42 U/L (35-104) Total Protein 5.2 g/dL (6.6-8.7) L Albumin 3.1 g/dL (3.5-5.2) L Globulin 2.1 g/dL Albumin/Globulin Ratio 1.4 (1.0-2.7) Risk Assessment & Plan Assessment: ASA 3 Plan: MAC Status Change Before Surgery: No Pre-Antibiotics Drug: none SUGEY ALBRECHT M.D. Feb 18, 2017 11:54
--- NOTE | 2017-02-18 11:56 | Endoscopy Procedure Note ---
Endoscopy Procedure Note Indication for Procedure: gib Procedures Performed: EGD Operative Findings/Diagnosis: baretts esophagus Specimen: yes Pt Tolerated Procedure Well: Yes Estimated Blood Loss: none Anesthesiologist: bruce Anesthesia: MAC Implant(s) used?: No 50 yrs or older w/o bx or poly: Not Applicable 10yrs. F/U not recommended: Not Applicable RUSSEL RENDON Feb 18, 2017 11:56
--- NOTE | 2017-02-18 12:03 | Immediate Post-Op Evaluation ---
Immediate Post-Op Evalulation Immediate Post-Op Evalulation Procedure: EGD with Bx. Date of Evaluation: Feb 18, 2017 Time of Evaluation: 12:01 IV Fluids: 300 Blood Products: none Estimated Blood Loss: none Urinary Output: none Blood Pressure Systolic: 102 Blood Pressure Diastolic: 56 Pulse Rate: 83 Respiratory Rate: 20 O2 Sat by Pulse Oximetry: 99 Temperature (Fahrenheit): 97.5 Pain Score (1-10): 1 Nausea: No Vomiting: No Complications none Patient Status: awake, patent, none Hydration Status: adequate SUGEY ALBRECHT M.D. Feb 18, 2017 12:02
[2017-02-18] MEDS ORDERED: fentaNYL 100 mcg/2 mL IV PRN (12:15)
--- NOTE | 2017-02-18 13:40 | 48 Hour Post Anesthesia Eval ---
Post Anesthesia Evaluation Procedure: EGD with Bx. Date of Evaluation: Feb 18, 2017 Time of Evaluation: 13:39 Blood Pressure Systolic: 128 0: 75 Pulse Rate: 72 Respiratory Rate: 20 Temperature (Fahrenheit): 97.5 O2 Sat by Pulse Oximetry: 98 Airway: patent Nausea: No Vomiting: No Pain Intensity: 1 Hydration Status: adequate Cardiopulmonary Status: stable Mental Status/LOC: patient returned to baseline Follow-up Care/Observations: n/a Post-Anesthesia Complications: none Follow-up care needed: N/A SUGEY ALBRECHT M.D. Feb 18, 2017 13:40
--- NOTE | 2017-02-18 18:48 | Cardiology Progress Note ---
Assessment/Plan Assessment/Plan 1. Syncopal event. This is due to volume loss or hypovolemia, continue hydration, echo reveals normal LVEF at 55-60%. 2. Upper gastrointestinal bleed, s/p endoscopy. Subjective Subjective Sinus rhythm at 80 Objective Last 24 Hour Vital Signs Date Time Temp Pulse Resp B/P Pulse Ox O2 Delivery O2 Flow Rate FiO2 02/18/17 16:00 88 02/18/17 16:00 97.1 85 21 109/66 97 Room Air 02/18/17 14:50 97.5 02/18/17 13:40 72 20 98 02/18/17 12:55 98.8 78 20 113/64 99 Room Air 02/18/17 12:40 77 20 109/63 99 Room Air 02/18/17 12:25 78 20 107/63 99 Room Air 02/18/17 12:10 82 20 94/56 99 Nasal Cannula 2.0 02/18/17 12:05 98.7 86 20 102/56 99 Nasal Cannula 2.0 02/18/17 12:02 83 20 99 02/18/17 12:01 72 02/18/17 12:00 104 02/18/17 11:59 98.7 87 20 100/56 99 Nasal Cannula 2.0 02/18/17 08:00 68 02/18/17 08:00 97.3 84 21 127/67 98 Room Air 02/18/17 04:00 97.7 72 20 106/62 99 Room Air 02/18/17 04:00 72 82 99 02/18/17 03:40 74 02/18/17 00:00 97.7 75 20 110/61 95 Room Air 02/17/17 23:44 71 02/17/17 20:52 98.0 71 20 107/67 96 Room Air 02/17/17 19:16 73 Intake and Output 02/17/17 02/18/17 19:00 07:00 Intake Total 1530 ml 1200 ml Balance 1530 ml 1200 ml Intake Oral 30 ml IV Total 1500 ml 1200 ml # Voids 1 2 2D Echo: LVEF 55-60%, grade II LVDD, RVSP 22 mmHg Laboratory Tests Test 02/18/17 03:20 White Blood Count 6.7 K/UL (4.8-10.8) Red Blood Count 3.17 M/UL (4.20-5.40) L Hemoglobin 9.5 G/DL (12.0-16.0) L Hematocrit 29.3 % (37.0-47.0) L Mean Corpuscular Volume 92 FL (80-99) Mean Corpuscular Hemoglobin 30.0 PG (27.0-31.0) Mean Corpuscular Hemoglobin Concent 32.5 G/DL (32.0-36.0) Red Cell Distribution Width 12.8 % (11.6-14.8) Platelet Count 223 K/UL (150-450) Mean Platelet Volume 5.8 FL (6.5-10.1) L Neutrophils (%) (Auto) 58.1 % (45.0-75.0) Lymphocytes (%) (Auto) 31.2 % (20.0-45.0) Monocytes (%) (Auto) 7.1 % (1.0-10.0) Eosinophils (%) (Auto) 2.9 % (0.0-3.0) Basophils (%) (Auto) 0.8 % (0.0-2.0) Sodium Level 141 mEQ/L (135-145) Potassium Level 3.8 mEQ/L (3.4-4.9) Chloride Level 107 mEQ/L (98-107) Carbon Dioxide Level 22 mEQ/L (20-30) Anion Gap 12 (5-15) Blood Urea Nitrogen 11 mg/dL (7-23) Creatinine 0.6 mg/dL (0.5-0.9) Estimat Glomerular Filtration Rate > 60 mL/min (>60) Glucose Level 116 mg/dL (74-106) H Calcium Level 8.0 mg/dL (8.6-10.2) L Total Bilirubin 0.3 mg/dL (0.0-1.2) Aspartate Amino Transf (AST/SGOT) 15 U/L (5-40) Alanine Aminotransferase (ALT/SGPT) 11 U/L (3-33) Alkaline Phosphatase 42 U/L (35-104) Total Protein 5.2 g/dL (6.6-8.7) L Albumin 3.1 g/dL (3.5-5.2) L Globulin 2.1 g/dL Albumin/Globulin Ratio 1.4 (1.0-2.7) Objective HEENT: Atraumatic and normocephalic. Anicteric. Pupils are equal, round, and reactive to light and accommodation. Extraocular motion intact. NECK: JVP is less than 5 cm. No carotid bruits. Carotid upstrokes 2+ bilaterally. CVS: Normal S1 and S2. Regular rate and rhythm. No murmurs, gallops, or rubs. PMI is at fourth intercostal space at the midclavicular line. LUNGS: Clear to auscultation bilaterally. ABDOMEN: Soft, nontender, and nondistended. No hepatosplenomegaly. Positive bowel sounds. EXTREMITIES: No evidence of edema, clubbing, or cyanosis. SERGIO LEACH Feb 18, 2017 18:48
--- NOTE | 2017-02-18 20:58 | Procedure Note ---
DATE OF PROCEDURE: 02/18/2017 SURGEON: James Dang M.D. PROCEDURE: Upper endoscopy with biopsy. ANESTHESIOLOGIST: Cirilo Levy M.D. INSTRUMENT: Olympus adult flexible upper endoscope. INDICATION: Hematemesis. REASON FOR PROCEDURE: The procedure, risks, benefits, and possible consequences, including hemorrhage, aspiration, perforation and infection, and alternative treatments, were explained to the patient/legal guardian by Dr. James Dang and the patient/legal guardian understood and accepted these risks. DESCRIPTION OF PROCEDURE: After informed consent was obtained and the patient was adequately sedated, Olympus upper endoscope was advanced from mouth into the second portion of the duodenum and retroflexion was performed in the stomach. The patient had evidence of large hiatal hernia, about 4 to 5 cm hiatal hernia. 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 Also, there was a single ulceration in the distal esophagus, not bleeding actively at this time. The patient has evidence of multiple erosions in the antrum also. Random biopsy from antrum was obtained to rule out H. pylori infection. Biopsy from distal esophagus was also obtained to evaluate for Tucker's. The patient tolerated the procedure well without any complication. SUMMARY OF FINDINGS: 1. 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 2. About 4 to 5 cm hiatal hernia. 3. Evidence of Babar ulceration associated with this large hiatal hernia. 4. Multiple antral erosions. RECOMMENDATIONS: Follow up biopsy results and treat accordingly. The patient needs to be on the PPI at least once a day as well as reflux measures. The patient most probably needs an ablation for this Tucker's. We will talk to the patient to plan for as an outpatient. James Dang M.D. DR: LUIS JOB#: [id number] CC:
[2017-02-19] VITALS: BP 102/64
[2017-02-19 04:00] VITALS: BP 110/71
[2017-02-19 08:00] VITALS: BP 123/74
[2017-02-19] MEDS: Pantoprazole Inj IVP SCH (09:07)
[2017-02-19 09:12] LABS: BASOPHILS % (AUTO) 0.8 % (0.0-2.0); EOSINOPHILS % (AUTO) 1.9 % (0.0-3.0); LYMPHOCYTES % (AUTO) 23.5 % (20.0-45.0); MEAN CORPUSCULAR HEMOGLOBIN 29.6 PG (27.0-31.0); MEAN CORPUSCULAR HGB CONC 32.1 G/DL (32.0-36.0); MEAN CORPUSCULAR VOLUME 92 FL (80-99); MEAN PLATELET VOLUME 5.5 FL (6.5-10.1); MONOCYTES % (AUTO) 5.3 % (1.0-10.0); NEUTROPHILS % (AUTO) 68.6 % (45.0-75.0); PLATELET COUNT 250 K/UL (150-450); RED BLOOD COUNT 3.42 M/UL (4.20-5.40); RED CELL DISTRIBUTION WIDTH 12.8 % (11.6-14.8); WHITE BLOOD COUNT 7.1 K/UL (4.8-10.8)
[2017-02-19 09:28] LABS: ALANINE AMINOTRANSFERASE 11 U/L (3-33); ALBUMIN/GLOBULIN RATIO 1.6 (1.0-2.7); ANION GAP 12 (5-15); ASPARTATE AMINO TRANSFERASE 13 U/L (5-40); CALCIUM 8.9 mg/dL (8.6-10.2); CARBON DIOXIDE 25 mEQ/L (20-30); CHLORIDE 102 mEQ/L (98-107); CREATININE 0.7 mg/dL (0.5-0.9); GLOMERULAR FILTRATION RATE > 60 mL/min (>60); HEMOLYSIS 2; POTASSIUM 4.2 mEQ/L (3.4-4.9); SODIUM 139 mEQ/L (135-145); TOTAL PROTEIN 5.9 g/dL (6.6-8.7)
--- NOTE | 2017-02-19 09:34 | General Progress Note ---
Assessment/Plan Status: stable Assessment/Plan 1. Acute encephalopathy. 2. Dehydration. 3. Anemia - acute. 4. Gastrointestinal bleed. 5. Gastroesophageal reflux disease. 6. Lizandro's esophagitis 6. Gastrointestinal and deep vein thrombosis prophylaxes. Neuro, GI notes are reviewed S/P Endoscopy Ok to followup as an outpatient Subjective Constitutional: Reports: no symptoms HEENT: Reports: no symptoms Allergies: Coded Allergies: PENICILLINS (Unverified Allergy, Unknown, 02/16/17) Objective Last 24 Hour Vital Signs Date Time Temp Pulse Resp B/P Pulse Ox O2 Delivery O2 Flow Rate FiO2 02/19/17 08:36 93 99 113 02/19/17 08:00 98.2 93 20 123/74 97 Room Air 02/19/17 04:00 97.5 74 19 110/71 94 Room Air 02/19/17 03:23 75 02/19/17 00:14 71 02/19/17 00:00 97.7 75 20 102/64 94 Room Air 02/18/17 20:00 83 83 99 02/18/17 20:00 97.9 83 20 114/70 95 Room Air 02/18/17 18:38 87 02/18/17 16:00 88 02/18/17 16:00 97.1 85 21 109/66 97 Room Air 02/18/17 14:50 97.5 02/18/17 13:40 72 20 98 02/18/17 12:55 98.8 78 20 113/64 99 Room Air 02/18/17 12:40 77 20 109/63 99 Room Air 02/18/17 12:25 78 20 107/63 99 Room Air 02/18/17 12:10 82 20 94/56 99 Nasal Cannula 2.0 02/18/17 12:05 98.7 86 20 102/56 99 Nasal Cannula 2.0 02/18/17 12:02 83 20 99 02/18/17 12:01 72 02/18/17 12:00 104 02/18/17 11:59 98.7 87 20 100/56 99 Nasal Cannula 2.0 Intake and Output 02/18/17 02/19/17 19:00 07:00 Intake Total 1460 ml 300 ml Balance 1460 ml 300 ml Intake Oral 560 ml 300 ml IV Total 900 ml # Voids 3 3 Laboratory Tests 02/19/17 08:50: White Blood Count 7.1, Red Blood Count 3.42L, Hemoglobin 10.1L, Hematocrit 31.5L , Mean Corpuscular Volume 92, Mean Corpuscular Hemoglobin 29.6, Mean Corpuscular Hemoglobin Concent 32.1, Red Cell Distribution Width 12.8, Platelet Count 250, Mean Platelet Volume 5.5L, Neutrophils (%) (Auto) 68.6, Lymphocytes ( %) (Auto) 23.5, Monocytes (%) (Auto) 5.3, Eosinophils (%) (Auto) 1.9, Basophils (%) (Auto) 0.8, Sodium Level 139, Potassium Level 4.2, Chloride Level 102, Carbon Dioxide Level 25, Anion Gap 12, Blood Urea Nitrogen 11, Creatinine 0.7, Estimat Glomerular Filtration Rate > 60, Glucose Level 171H, Calcium Level 8.9, Total Bilirubin 0.3, Aspartate Amino Transf (AST/SGOT) 13, Alanine Aminotransferase (ALT/SGPT) 11, Alkaline Phosphatase 50, Total Protein 5.9L, Albumin 3.7, Globulin 2.2, Albumin/Globulin Ratio 1.6 Height (Feet): 5 Height (Inches): 2.00 Weight (Pounds): 136 General Appearance: no apparent distress EENT: PERRL/EOMI Neck: supple Cardiovascular: normal rate Respiratory/Chest: lungs clear Abdomen: soft Extremities: non-tender Neurologic: sound effects person II-XII grossly normal Rula Albarado MD Feb 19, 2017 09:34
--- NOTE | 2017-02-19 10:16 | GI Progress Note ---
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 Dang. Assessment/Plan SUMMARY OF FINDINGS: 1. 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 2. About 4 to 5 cm hiatal hernia. 3. Evidence of Babar ulceration associated with this large hiatal hernia. 4. Multiple antral erosions. RECOMMENDATIONS: ok for DC per GI standpoint Follow up biopsy results and treat accordingly. The patient needs to be on the PPI at least once a day as well as reflux measures. The patient most probably needs an ablation for this Tucker's. We will talk to the patient to plan for as an outpatient. Subjective Subjective epigastric tenderness Objective Last 24 Hour Vital Signs Date Time Temp Pulse Resp B/P Pulse Ox O2 Delivery O2 Flow Rate FiO2 02/19/17 08:36 93 99 113 02/19/17 08:00 98.2 93 20 123/74 97 Room Air 02/19/17 04:00 97.5 74 19 110/71 94 Room Air 02/19/17 03:23 75 02/19/17 00:14 71 02/19/17 00:00 97.7 75 20 102/64 94 Room Air 02/18/17 20:00 83 83 99 02/18/17 20:00 97.9 83 20 114/70 95 Room Air 02/18/17 18:38 87 02/18/17 16:00 88 02/18/17 16:00 97.1 85 21 109/66 97 Room Air 02/18/17 14:50 97.5 02/18/17 13:40 72 20 98 02/18/17 12:55 98.8 78 20 113/64 99 Room Air 02/18/17 12:40 77 20 109/63 99 Room Air 02/18/17 12:25 78 20 107/63 99 Room Air 02/18/17 12:10 82 20 94/56 99 Nasal Cannula 2.0 02/18/17 12:05 98.7 86 20 102/56 99 Nasal Cannula 2.0 02/18/17 12:02 83 20 99 02/18/17 12:01 72 02/18/17 12:00 104 02/18/17 11:59 98.7 87 20 100/56 99 Nasal Cannula 2.0 Intake and Output 02/18/17 02/19/17 19:00 07:00 Intake Total 1460 ml 300 ml Balance 1460 ml 300 ml Intake Oral 560 ml 300 ml IV Total 900 ml # Voids 3 3 Laboratory Tests Test 02/19/17 08:50 White Blood Count 7.1 K/UL (4.8-10.8) Red Blood Count 3.42 M/UL (4.20-5.40) L Hemoglobin 10.1 G/DL (12.0-16.0) L Hematocrit 31.5 % (37.0-47.0) L Mean Corpuscular Volume 92 FL (80-99) Mean Corpuscular Hemoglobin 29.6 PG (27.0-31.0) Mean Corpuscular Hemoglobin Concent 32.1 G/DL (32.0-36.0) Red Cell Distribution Width 12.8 % (11.6-14.8) Platelet Count 250 K/UL (150-450) Mean Platelet Volume 5.5 FL (6.5-10.1) L Neutrophils (%) (Auto) 68.6 % (45.0-75.0) Lymphocytes (%) (Auto) 23.5 % (20.0-45.0) Monocytes (%) (Auto) 5.3 % (1.0-10.0) Eosinophils (%) (Auto) 1.9 % (0.0-3.0) Basophils (%) (Auto) 0.8 % (0.0-2.0) Sodium Level 139 mEQ/L (135-145) Potassium Level 4.2 mEQ/L (3.4-4.9) Chloride Level 102 mEQ/L (98-107) Carbon Dioxide Level 25 mEQ/L (20-30) Anion Gap 12 (5-15) Blood Urea Nitrogen 11 mg/dL (7-23) Creatinine 0.7 mg/dL (0.5-0.9) Estimat Glomerular Filtration Rate > 60 mL/min (>60) Glucose Level 171 mg/dL (74-106) H Calcium Level 8.9 mg/dL (8.6-10.2) Total Bilirubin 0.3 mg/dL (0.0-1.2) Aspartate Amino Transf (AST/SGOT) 13 U/L (5-40) Alanine Aminotransferase (ALT/SGPT) 11 U/L (3-33) Alkaline Phosphatase 50 U/L (35-104) Total Protein 5.9 g/dL (6.6-8.7) L Albumin 3.7 g/dL (3.5-5.2) Globulin 2.2 g/dL Albumin/Globulin Ratio 1.6 (1.0-2.7) Height (Feet): 5 Height (Inches): 2.00 Weight (Pounds): 136 General Appearance: no apparent distress, alert Cardiovascular: normal rate Respiratory/Chest: normal breath sounds Abdominal Exam: normal bowel sounds, non tender, soft Extremities: normal range of motion Freda Ramos N.P. Feb 19, 2017 10:16
--- NOTE | 2017-02-20 09:18 | Cardiology Report ---
APPROVED REPORT EXAM: Two-dimensional and M-mode echocardiogram with Doppler and color Doppler. INDICATION Palpitations M-Mode DIMENSIONS IVSd0.8 (0.7-1.1cm)Aortic Root2.8 (2.0-3.7cm) LVDd5.5 (3.5-5.6cm)Aortic Cusp Exc.1.8 (1.5-2.0cm) IVSs0.8 cm LVDs3.6 (2.5-4.0cm) PWs1.0 cm Normal left ventricular chamber size, systolic function and wall motion. Left ventricular ejection fraction estimated to be 55-60 %. No evidence of left ventricular hypertrophy. No evidence of pericardial fat or effusion. All other cardiac chamber sizes are within normal limits. Focal aortic valve sclerosis with adequate cusp excursion Thickened mitral valve leaflets with normal excursion. Mitral annulus and aortic root calcification. Pulmonic valve not well visualized. Normal tricuspid valve structure. IVC is normal in size with physiologic collapse. A color flow and spectral Doppler study was performed and revealed: No aortic regurgitation. No mitral regurgitation. Mitral inflow velocities indicates possible pseudo normalization pattern implying significant left ventricular diastolic dysfunction. Trace tricuspid regurgitation. Tricuspid systolic velocities suggests peak right ventricular systolic pressure of 22 mmHg
--- NOTE | 2017-02-21 00:38 | Discharge Summary 2 SIG ---
DATE OF ADMISSION: 02/16/2017 DATE OF DISCHARGE: 02/19/2017 CONSULTANTS: 1. James Dang M.D. 2. Víctor Mcbride M.D. 3. Rene Rodriguez M.D. BRIEF HOSPITAL COURSE: The patient is a 71-year-old white female, who was brought to emergency room after weakness and loss of consciousness. The patient was noted to have hematemesis with some bright red blood and reported having some epigastric pain. She was taking Aleve for pain. On evaluation at ED, EKG showed normal sinus rhythm with no acute ST to T-wave changes. She was given IV hydration and was admitted for inpatient management. She was initially kept on NPO. GI was consulted. The patient complained of longstanding history of gastroesophageal reflux disease, but has not taken any medications out of fear of side effects. She was also evaluated by Neurology. There was no involuntary movement. Denies tongue biting, or urine incontinence. On assessment, there was no evidence of focal lateralizing neurologic deficit. Cardiac evaluation was done. The troponin was less than 0.3. Syncopal event was assessed to be secondary to volume loss or hypovolemia secondary to hematemesis and blood loss. Echocardiogram done showed normal left ventricular systolic function with left ventricular ejection fraction of 55% to 60%. There was a drop in the patient's hemoglobin level and on 02/18/2017, underwent EGD with findings of Tucker's esophagus starting from 24 cm to 34 cm almost 10 cm long. There was a single ulceration in the distal esophagus but not actively bleeding and has evidence of multiple erosions in the antrum. She was continued on proton pump inhibitors. Diet was advanced. The patient was advised to follow up with GI as outpatient. She was eventually discharged home. FINAL DIAGNOSES: 1. Acute metabolic encephalopathy. 2. Acute anemia. 3. Dehydration. 4. Gastrointestinal bleed. 5. Gastroesophageal reflux disease. 6. Tucker's esophagitis. 7. Syncope probably secondary to hypovolemia. Rula Albarado M.D. I have been assigned to dictate discharge summary on this account and I was not involved in the patient's management. Ernestina Ruff N.P. DR: TEJA JOB#: [id number] CC: ERON
--- NOTE | 2017-02-21 23:13 | Diagnostic Imaging Report ---
APPROVED REPORT CPT Code: 38367 Vascular Symptoms Dizziness and Vertigo CAROTID (BILATERAL) - Imaging reveals no significant plaque within the right and left extracranial carotid arteries. The Doppler spectral flow analysis is within normal limits throughout the extracranial carotid arteries bilaterally. VERTEBRAL- The vertebral arteries are within normal limits.
== END 2017-02-19 12:09 | disposition home or self-care (01) | DRG 377 ==
LOC: EDBD 18:18 → EMR 18:56 → 2W 18:57 → EDBEDREQ 19:15 → 2W 02-17
PROC: 0DB68ZX Excision of Stomach, Via Natural or Artificial Opening Endoscopic, Diagnostic (ICD-10-PCS; principal; 2017-02-18 11:44)
DX: K92.2 Gastrointestinal hemorrhage, unspecified (principal); G93.40 Encephalopathy, unspecified; G93.41 Metabolic encephalopathy; E86.0 Dehydration; D64.9 Anemia, unspecified; K21.9 Gastro-esophageal reflux disease without esophagitis; K22.70 Barrett's esophagus without dysplasia; E86.1 Hypovolemia; F41.9 Anxiety disorder, unspecified; Z88.0 Allergy status to penicillin
CPT/HCPCS: 36415; 76700; 80053; 80061; 81003; 82150; 83540; 83550; 83690; 83880; 84443; 84484; 85025; 85610; 85730; 86850; 86900; 86901; 93005; 93306; 93880; 94003; 94150; J2250